=== PATIENT | male | born 1990 | race Caucasian/White ===

== ENCOUNTER → 2022-08-01 07:59 | Outpatient (CLI) | payer OTHER, SELFPAY ==
--- NOTE | 2022-08-02 13:20 | DI.NM.S_ITS ---
DATE OF SERVICE: 08/01/2022 PROCEDURE: Exercise treadmill stress test without imaging. ORDERING PROVIDER: Liam Louise MD. INDICATION: The patient is a 31-year-old male with a history of palpitations, hyperlipidemia, and a strong family history of coronary disease. FINDINGS: 1. The patient was able to exercise for 12 minutes, 36 seconds on a standard Robert protocol suggesting slightly impaired exercise capacity with an DENIS of +7%, achieving 13.3 METs. 2. He had a normal heart rate response to exercise, achieving a maximum heart rate of 191, BPM (102% of his predicted maximum). He had a mild hypertensive blood pressure response to exercise with a resting blood pressure of 120/90, increasing to a maximum of 220/110. 3. The patient denied any chest discomfort or anginal symptoms. 4. The resting ECG shows sinus rhythm with normal ST segments. With exercise, there is likely 1.0-2.[address] depression in the inferolateral leads, more so in the inferior leads, although there is considerable motion artifact that makes definitive assessment challenging, yet this essentially resolves within 1 minute of recovery and thus is relatively nonspecific. There were no arrhythmias. IMPRESSION: 1. Borderline exercise treadmill study for ischemia with moderate ST depression in inferolateral leads with stress but this resolves within 1 minute of recovery and is associated with a hypertensive blood pressure response, reducing its specificity. If there is a high degree of clinical concern for coronary disease, consider a stress imaging study. 2. Mildly impaired exercise capacity without angina or arrhythmias. He had a mild hypertensive blood pressure response to exercise with a maximum blood pressure of 220/110. Mateo Bhatia - LILI/steve/ALICE doc#: [id number]/job#: [id number] dd: 08/01/2022 18:00:00 dt: 08/01/2022 18:46:00 DICTATING MD/COPIES TO: Yury Alvarez MD; Liam Louise MD COPIES MNE: MARIOLA;
== END ==
PROVIDERS: PCP Family Medicine; Referring Provider Internal Medicine Cardiovascular Disease; Visit Provider Internal Medicine Cardiovascular Disease
DX: R00.2 Palpitations (principal); E78.00 Pure hypercholesterolemia, unspecified; Z82.49 Family history of ischemic heart disease and other diseases of the circulatory system; I51.7 Cardiomegaly
CPT/HCPCS: 93017

== ENCOUNTER → 2022-12-03 07:50 | Outpatient (CLI) | payer OTHER, SELFPAY ==
--- NOTE | 2022-12-03 | DI.US.S_ITS ---
PROCEDURE: US RENAL COMPLETE INDICATIONS: CONGENITAL ABSENCE OF VAS DEFERENS TECHNIQUE: Real-time scanning was performed of the kidneys and bladder, with image documentation. COMPARISON: None. FINDINGS: Kidneys: The right kidney is normal in size measuring 13.3 cm in length. There is normal morphology and cortical thickness. No hydronephrosis or nephrolithiasis visible. There is no perinephric fluid. Normal vascular flow seen by color Doppler imaging. No renal tissue in the left renal fossa seen sonographically. The left retroperitoneum was scanned and there is no low lying or pelvic kidney. Bladder: Pre-void bladder volume is 103 mL. Post-void residual is 0 mL. Pre-void images demonstrate no intraluminal masses or stones. On pre-void images, neither ureteral jets are noted with color Doppler interrogation. (Of note, ureteral jets may not be detectable in up to 25% of cases due to insufficient differences in specific gravity between ureteral and bladder urine). Miscellaneous: No free pelvic fluid. IMPRESSION: 1. No sonographic evidence of left kidney in the normal position or in an ectopic position. If confirmation of renal agenesis is needed, MR imaging would be most sensitive. 2. Normal right renal morphology without evidence of horseshoe or cross fused ectopia. Dictated by: Marisol Brennan M.D. on 12/03/2022 at 13:20 Approved by: Marisol Brennan M.D. on 12/03/2022 at 13:24
== END ==
PROVIDERS: PCP Family Medicine; Referring Provider Urology; Visit Provider Urology
DX: Q55.4 Other congenital malformations of vas deferens, epididymis, seminal vesicles and prostate (principal)
CPT/HCPCS: 76770